=== PATIENT | male | born 1990 | race African-American/Black ===

== ENCOUNTER 2017-07-12 21:52 | Emergency (ER) | payer OTHER ==
[~2017-07-12] VITALS: Ht 165.1 cm; Wt 65.8 kg
[~2017-07-12 21:52] MED LIST: ADDERALL; CIPROFLOXACIN500 M1 PO; HERPES MED; IBUPROFEN 600600 M1 PO; IBUPROFEN 800800 MG PO; NORCO 5-325 TA1 EACH PO; TAMSULOSIN HCL0.4 MG PO; THERAFLU FLU &1 EAC1; ZOFRAN ODT4 MG PO; ZONEGRAN; ZPAK PO; [UNRECOGNIZED DRUG - OTHER]
[2017-07-12 22:12] VITALS: BP 134/87
[2017-07-12] MEDS ORDERED: HYDROCORTISONE3011 TOP (22:23)
== END 2017-07-12 22:35 | disposition home or self-care (01) ==
LOC: ER 21:52
DX: R21 Rash and other nonspecific skin eruption (principal); F90.9 Attention-deficit hyperactivity disorder, unspecified type

== ENCOUNTER 2020-05-16 17:40 | Emergency (ER) | payer OTHER ==
[~2020-05-16] VITALS: Ht 165.1 cm; Wt 81.7 kg
[~2020-05-16 17:40] MED LIST changes: +HYDROCORTISONE3011 TOP
[2020-05-16] MEDS ORDERED: MEDROLDOSEPACK PO ×2 (20:23→20:39)
[2020-05-16 20:30] VITALS: BP 132/79
== END 2020-05-16 20:30 | disposition home or self-care (01) ==
LOC: ER 17:40
DX: J06.9 Acute upper respiratory infection, unspecified (principal); B97.89 Other viral agents as the cause of diseases classified elsewhere; R06.00 Dyspnea, unspecified

== ENCOUNTER 2020-10-05 14:59 | Emergency (ER) | payer OTHER ==
[~2020-10-05] VITALS: Ht 165.1 cm; Wt 77.1 kg
[~2020-10-05 14:59] MED LIST changes: +MEDROLDOSEPACK PO
[2020-10-05 15:01] VITALS: BP 181/88
[2020-10-05 15:36] LABS: ABSOLUTE NEUTROPHILS 2.6 thou/uL (1.4-8.2); BASOPHILS 0.3 % (0.0-2.0); EOSINOPHILS 0.9 % (0.0-3.0); HEMATOCRIT 45.5 % (42.0-52.0); LYMPHOCYTES 38.1 % (24.0-44.0); MCV 93.9 fL (80.0-100.0); MONOCYTES 10.5 % (1.0-8.0); PLATELET COUNT 210 thou/uL (150-400); POLYS 50.2 % (36.0-66.0); RBC 4.85 mil/uL (4.50-6.00); RDW 13.6 % (10.5-14.5); WBC 5.3 thou/uL (4.0-11.0)
[2020-10-05 16:25] LABS: ANION GAP 14 mmol/L (7-16); BUN 15 mg/dL (7-18); CALCIUM 9.6 mg/dL (8.5-10.1); CHLORIDE 103 mmol/L (98-107); CO2 25 mmol/L (21-32); CREATININE 1.1 mg/dL (0.7-1.3); GLUCOSE 107 mg/dL (74-106); POTASSIUM 3.9 mmol/L (3.5-5.1); SODIUM 142 mmol/L (136-145)
[2020-10-05 16:30] LABS: AMP/METHAMP Negative (Negative); BARBITURATES Negative (Negative); BENZODIAZEPINES Negative (Negative); COCAINE Negative (Negative); METHADONE Negative (Negative); OPIATES Negative (Negative); PCP Negative (Negative)
[2020-10-05 16:33] LABS: ALBUMIN 4.7 g/dL (3.4-5.0); DIRECT BILIRUBIN < 0.1 mg/dL (<0.1-0.2); SALICYLATE < 2.8 mg/dL (2.8-20.0); SGOT 13 U/L (15-37); SGPT 26 U/L (16-63); TOTAL BILIRUBIN 0.4 mg/dL (0.2-1.0); TOTAL PROTEIN 8.4 g/dL (6.4-8.2)
== END 2020-10-05 18:20 | disposition home or self-care (01) ==
LOC: ER 14:59
PROVIDERS: Nurse Practitioner
DX: F48.9 Nonpsychotic mental disorder, unspecified (principal); Z20.822 Contact with and (suspected) exposure to COVID-19; F90.9 Attention-deficit hyperactivity disorder, unspecified type; F20.9 Schizophrenia, unspecified